=== PATIENT | male | born 1995 | race African-American/Black ===

== ENCOUNTER 2018-10-22 21:28 | Emergency (ER) | payer SELFPAY ==
--- NOTE | 2018-10-22 21:52 | ED Physician Documentation ---
Low Back Pain - HISTORIAN Historian: patient - HPI Chief Complaint: Low Back Pain/ Injury Additional Information: Patient is a 23 year old male who presents to the ER with c/o low back pain. 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 He has obviously been using BenGay, heating pad and ice packs. He is able to lie flat; knees up to chest and knees out laterally and medially without discomfort. He is unable to go from lying to sitting without assistance. Multiple muscle spasms felt to the lumbar spine; no discomfort with straight leg raises. History: denies: history of chronic pain: Onset: hours Duration: continues in ED Recent Injury: No (bent over to citrus picker toy) Context: bending Where: home Other Injuries: back Severity: moderate Quality: sharp, dull Associated Symptoms: difficulty walking, weakness. denies: nausea, vomiting Worsened By:: upright position Relieved By: supine - ROS CONST: no problems CVS/RESP: none EYES/ENT: none MS/SKIN/LYMPH: none Neuro/Psych: none GI/: denies: abdominal pain - PAST HX Past History: denies: back injury, back pain Surgeries/Procedures: none Immunizations: UTD Allergies/Adverse Reactions: Allergies Allergy/AdvReac Type Severity Reaction Status Date / Time No Known Allergies Allergy Verified 10/22/18 21:52 Home Medications: Ambulatory Orders Medication Instructions Recorded Cyclobenzaprine HCl [Flexeril] 10 mg PO Q8H PRN #30 tablet 10/22/18 Ibuprofen 800 mg PO Q8H #20 tablet 10/22/18 Methylprednisolone [Medrol] 4 mg PO DAILY #21 tab.ds.pk 10/22/18 - SOCIAL HX Smoking History: greater than 1 pack/day Alcohol Use: occasionally Drug Use: none - FAMILY HX Family History: none - VITAL SIGNS Vital Signs: Vital Signs Temp Pulse Resp BP Pulse Ox 59 L 14 124/62 98 10/22/18 22:59 10/22/18 22:59 10/22/18 22:59 10/22/18 22:59 - REVIEWED ASSESSMENTS Nursing Assessment Reviewed: Yes Vitals Reviewed: Yes ED Results Lab/Radiology - Orders Orders: ED Orders Category Date Time Status Cyclobenzaprine HCl [Flexeril] Med 10/22/18 21:49 Discontinued 10 mg PO NOW ONE Ketorolac Tromethamine [Toradol] Med 10/22/18 21:49 Discontinued 60 mg IM NOW ONE methylPREDNISolone SOD SUCC [SOLU-Medrol] Med 10/22/18 21:49 Discontinued 125 mg IM NOW ONE Low Back Pain/Injury - Physical Exam General Appearance: alert, mild distress EENT: eye inspection normal, ENT inspection normal, pharynx normal, no signs of dehydration, CONSUELO Neck: non-tender, painless ROM Resp/CVS: breath sounds nml, heart sounds nml Abdomen: non-tender Back: muscle spasm Straight Leg Raising: Negative Left, Negative Right Neuro/Psych: oriented x3, motor nml, sensation nml, bilat. doriflexion nml, mood/affect nml Skin: warm/dry, normal color Extremities: non-tender, normal range of motion Discharge Clincal Impression: Acute low back pain Prescriptions: Cyclobenzaprine HCl [Flexeril] 10 mg PO Q8H PRN #30 tablet PRN Reason: Muscle spasm Ibuprofen 800 mg PO Q8H #20 tablet Methylprednisolone [Medrol] 4 mg PO DAILY #21 tab.ds.pk Referrals: Candy Fernandez MD [Primary Care Provider] - 2 Days Additional Instructions: Take Flexeril 10mg by mouth every 8 hours as needed for muscle spasms Take Medrol dose pack as directed for muscle spasms Take Ibuprofen 800mg by mouth every 8 hours for 24 hours and then every 8 hours as needed May alternate with Tylenol 650mg Continue to use Bengay, IcyHot, Biofreeze, or Salonpas Continue to use heating pad Follow up with PCP in one week if no improvement Condition: Good Disposition: 01 HOME, SELF-CARE Decision to Admit: NO Decision Time: 06:45
[2018-10-22] MEDS: KETOROLAC TROMETHAMINE 60 MG/2 ML VIAL IM ONE (22:06)
[2018-10-22] MEDS: CYCLOBENZAPRINE HCL 10 MG TABLET PO ONE (22:06)
[2018-10-22] MEDS: methylPREDNISolone SOD SUCC 125 MG/2 ML VIAL IM ONE (22:06)
[2018-10-22 23:01] VITALS: BP 124/62
== END 2018-10-22 22:45 ==
LOC: ED 21:28
DX: M54.5 Low back pain (principal)
CPT/HCPCS: 96372; 99283; 99284; J1885; J2930